=== PATIENT | female | born 1955 ===

== ENCOUNTER 2017-12-28 11:21 | Emergency (ER) | payer OTHER ==
[2017-12-28 11:43] VITALS: BP 214/106; PULSE 48; TEMP 98.7; O2SAT 100
--- NOTE | 2017-12-28 11:58 | C.PDOC ---
History Of Present Illness 62 year old female presents to the emergency department with prescriptions for various diagnostic testing. Patient states she has recently underwent physical for a new job and was given prescription for outpatient mammogram and EKG, and she was told she could "go to any hospital." Patient denies headache, vision changes, chest pain, shortness of breath, nausea, vomiting, numbness, or weakness. Time Seen by Provider: 12/28/17 11:50 Chief Complaint (Nursing): High Blood Pressure History Per: Patient History/Exam Limitations: no limitations Onset/Duration Of Symptoms: Days Current Symptoms Are (Timing): Still Present Past Medical History Reviewed: Historical Data, Nursing Documentation, Vital Signs Vital Signs: Last Vital Signs Temp 98.7 F 12/28/17 11:38 Pulse 48 L 12/28/17 11:38 Resp 16 12/28/17 12:25 BP 214/106 H 12/28/17 11:38 Pulse Ox 100 12/28/17 13:29 Family History: States: No Known Family Hx - Social History Hx Alcohol Use: Yes Hx Substance Use: No - Immunization History Hx Tetanus Toxoid Vaccination: No Hx Influenza Vaccination: No Hx Pneumococcal Vaccination: No Review Of Systems Except As Marked, All Systems Reviewed And Found Negative. Constitutional: Negative for: Fever, Chills Eyes: Negative for: Vision Change Cardiovascular: Negative for: Chest Pain Respiratory: Negative for: Shortness of Breath Gastrointestinal: Negative for: Nausea, Vomiting Neurological: Negative for: Weakness, Numbness, Headache Physical Exam - Physical Exam Additional Physical Exam Comments: Constitutional: No acute distress. Head: Normocephalic. Atraumatic. Eyes: PERRL. ENT: Moist mucous membranes. Neck: Supple. Cardiovascular: Regular rate. Radial pulse 2+ bilaterally. Chest: No tenderness. Respiratory: Clear to auscultation bilaterally. GI: Soft. Nontender. Nondistended. Back: No CVA tenderness. Musculoskeletal: No tenderness or swelling of extremities. Skin: No rash. Neurologic: Alert, no focal deficit. ED Course And Treatment ECG: Interpreted By Me, Viewed By Me ECG Rhythm: Sinus Rhythm ECG Interpretation: Normal Rate From EC O2 Sat by Pulse Oximetry: 100 (RA) Pulse Ox Interpretation: Normal Medical Decision Making Medical Decision Making: Impression: Hypertension Plan: Informed patient that testing must be obtained on an outpatient basis, not in the emergency department. EKG will be performed here. Patient noted to be hypertensive on arrival, which she is aware of, but has not yet started medication. Will eap counselor on importance of hypertension control. Patient already had labs performed during physical. EKG: Sinus rhythm at 50 bpm, no ST or T-wave changes. Disposition Counseled Patient/Family Regarding: Diagnosis, Need For Followup - Disposition Disposition: HOME/ ROUTINE Disposition Time: 12:25 Condition: GOOD Instructions: High Blood Pressure in Adults Forms: [facility] (Latvian) - Clinical Impression Clinical Impression: Chronic hypertension - Scribe Statement The provider has reviewed the documentation as recorded by the Elayne Oro Provider Attestation: All medical record entries made by the Elayne were at my direction and personally dictated by me. I have reviewed the chart and agree that the record accurately reflects my personal performance of the history, physical exam, medical decision making, and the department course for this patient. I have also personally directed, reviewed, and agree with the discharge instructions and disposition.
[2017-12-28 12:48] VITALS: RESP 16
--- NOTE | 2017-12-31 08:11 | CARD ---
APPROVED REPORT Date of service: 12/28/2017 EKG Measurement Heart [id number] <Conclusion> Sinus bradycardia Otherwise normal ECG
== END 2017-12-28 12:25 | disposition home or self-care (01) ==
LOC: C.ER 11:21 → MERGE 11:21 → C.ER 12:25
DX: I10 Essential (primary) hypertension (principal)